=== PATIENT | male | born 2000 | race Caucasian/White ===

== ENCOUNTER 2023-12-05 17:06 | Emergency (ER) | payer MEDICAID, SELFPAY ==
[2023-12-05 17:24] VITALS: BP 132/76; PULSE 104; RESP 17; TEMP 36.7; O2SAT 100; BMI 18.0
--- NOTE | 2023-12-05 18:09 | W.ED.WOUNDLC ---
HPI - Wound/Laceration General: Chief Complaint: Wound/Laceration Stated Complaint: head wound, fall Time Seen by Provider: 12/05/23 18:09 History of Present Illness: Patient presents emerged part with complaint of a laceration on his right scalp. He states that he was running and fell into a chitina bed. He has multiple scrapes and abrasions. He has a small laceration on the top of the scalp as well as pain in his right ribs. States he otherwise feels fine. Denies any headache. Denies any neck or back pain. Denies any chest pain or abdominal pain. Review of Systems Musc: Reports: other (Right chest wall pain) Skin/Breast: Reports: other (Right scalp laceration) Physical Exam Const: COMMON NORMALS: no acute distress EXAM LIMITATIONS: no altered mental status GENERAL APPEARANCE: cooperative ORIENTATION/CONSCIOUSNESS: Yes awake, Yes oriented to person, Yes oriented to place and Yes oriented to time HENMT: COMMON NORMALS: head/scalp not atraumatic (1 cm laceration to the right parietal scalp) HEAD & SCALP: laceration; not atraumatic (1 cm laceration to the right parietal scalp) FACE & SINUS: normal facial exam Eye: COMMON NORMALS: Equal, round and reactive pupils present and EOMs intact bilaterally PUPIL: Yes Equal, round and reactive pupils present Neck/C-Spine: COMMON NORMALS: full ROM GENERAL: No tender Lymph: LYMPHATIC: no lymphadenopathy noted Chest: CHEST: Yes Symmetrical chest wall rise, Yes localized rib tenderness with anteroposterior compression and Yes wounds (Diffuse abrasions on right chest wall) Resp: COMMON NORMALS: normal respiratory effort and clear to auscultation bilaterally EFFORT & INSPECTION: Yes able to speak in complete sentences AUSCULTATION: clear to auscultation bilaterally Cardio: COMMON NORMALS: regular rate and regular rhythm RATE: regular rate RHYTHM: regular rhythm GI: COMMON NORMALS: Normal to inspection, nondistended, normoactive bowel sounds present and non-tender : COMMON NORMALS: Yes no CVA tenderness BLADDER/KIDNEY EXAM: Yes no CVA tenderness Back/Pelvis: COMMON NORMALS: no CVA tenderness Extremity: NARRATIVE EXTREMITY EXAM: Diffuse abrasions over all 4 extremities Neuro: SENSORIUM/ORIENTATION: Yes oriented to person, Yes oriented to place and Yes oriented to time Skin: NARRATIVE SKIN EXAM: Patient with diffuse abrasions over torso and extremities. Has 1 cm laceration over right parietal scalp Procedures Laceration Laceration 1: Site: scalp Size (cm): 1 Description: linear and clean Pre-repair: wound explored and irrigated extensively Skin layer closed with: other (2 seema) Course Vital Signs: Vital signs: Vital Signs Temperature 98.1 F 12/05/23 17:24 Pulse Rate 104 H 12/05/23 17:24 Respiratory Rate 17 12/05/23 17:24 Blood Pressure 132/76 12/05/23 17:24 Pulse Oximetry 100 12/05/23 17:24 Oxygen Delivery Me thod Room Air 12/05/23 17:24 MDM - Wound/Laceration Medical Decision Making Patient states that he fell into a chitina bed. He does have a laceration and multiple abrasions. There is only 1 laceration will require closing. He has a 1 cm laceration on his right parietal scalp. This was cleaned and closed in a normal sterile fashion with 2 seema. Tetanus was updated. He does have some right-sided rib pain so x-rays were performed. Per emergency physician interpretation there is no fracture or pneumothorax. Patient is wanting to go home and not wait for final read and I think this is reasonable. He has no respiratory distress. Will discharge patient home with Motrin. Patient has no indication for further imaging at this time. XR interpretation done by ED provider, pending radiology final review Discharge Plan Discharge Patient Disposition: Home Clinical Impression: Laceration Condition: Stable Prescriptions: New ibuprofen 800 mg tablet 800 mg PO Q8H Qty: 30 0RF Discharge Orders: Discharge ED (Routine); Ordered 12/05/23 Ordered By: aMtias Soliz Patient Instructions: Opioid Safety, Pain Management Activity Restrictions/Additional Instructions: He may take Motrin or Tylenol for pain. Keep wounds clean and avoid swimming until laceration and abrasions have healed. Follow-up in 8 to 10 days to have seema removed from your scalp. Washing daily with soap and water is good for your abrasions and laceration. Return if any evidence or signs or concerns of infection. Coding Level of Care Code ED Social Service Technician for Apol[facility] Cuellar
--- NOTE | 2023-12-05 19:35 | XRR_ITS ---
PROCEDURE INFORMATION: Exam: XR Right Ribs Exam date and time: 12/05/2023 7:44 PM Age: 23 years old Clinical indication: Injury or trauma; Fall; Rib area; Blunt trauma (contusions or hematomas); Patient HX: Patient fell onto ground [place] running [place]. C/O RT sided rib pain. TECHNIQUE: Imaging protocol: Radiologic exam of the right ribs. Views: 2 views. COMPARISON: No relevant prior studies available. FINDINGS: Bones/joints: Normal. Soft tissues: Normal. XR/XR ribs RT 2V* [id number] IMPRESSION: No acute findings.
[2023-12-05] MEDS: tetanus-dipt-pertussis 0.5 mL SDV IM (20:10)
[2023-12-05 20:24] VITALS: BP 132/76; PULSE 104; RESP 17; TEMP 36.7; O2SAT 100
== END 2023-12-05 20:31 | disposition home or self-care (01) ==
PROVIDERS: Emergency Provider Emergency Medicine
DX: S01.01XA Laceration without foreign body of scalp, initial encounter (principal); S40.812A Abrasion of left upper arm, initial encounter; S40.811A Abrasion of right upper arm, initial encounter; S80.812A Abrasion, left lower leg, initial encounter; S80.811A Abrasion, right lower leg, initial encounter; W17.81XA Fall down embankment (hill), initial encounter; Y92.828 Other wilderness area as the place of occurrence of the external cause; Z23 Encounter for immunization
CPT/HCPCS: 12001; 71100; 90471; 90715; 99283

== ENCOUNTER 2023-12-15 15:00 | Emergency (ER) | payer MEDICAID, SELFPAY ==
[2023-12-15 15:02] VITALS: BP 129/87; PULSE 80; RESP 16; TEMP 36.6; O2SAT 96; BMI 16.1
--- NOTE | 2023-12-15 15:12 | W.ED.RECABL ---
HPI - Recheck/Abnormal Lab/Rx General: Chief Complaint: Wound/Laceration Stated Complaint: staple removal Time Seen by Provider: 12/15/23 15:09 Source: patient Mode of arrival: ambulatory Limitations: no limitations History of Present Illness: Patient here for staple removal to scalp. Placed 10 days ago. No issues since placement. complaint: suture/staple removal Initial visit (ago): day(s) (10 days ago) Initial visit for: laceration Returns today for: staple/stitch removal Symptoms since prior visit: no new symptoms Associated symptoms: none Related Data Previous Rx's Medication Instructions Recorded ibuprofen 800 mg tablet 800 mg PO Q8H #30 tabs 12/05/23 Allergies Allergy/AdvReac Type Severity Reaction Status Date / Time atenolol Allergy Severe ALGY-Difficulty Verified 12/05/23 17:28 Breathing Sulfa (Sulfonamide Allergy Unknown Verified 12/05/23 17:29 Antibiotics) Review of Systems Neuro: Denies: headache(s) Physical Exam Const: COMMON NORMALS: no acute distress, no limitations and well nourished HENMT: HEAD & SCALP: other (two seema vertex of scalp-look clean; removed) Course Vital Signs: Vital signs: Vital Signs Temperature 97.9 F 12/15/23 15:14 Pulse Rate 99 12/15/23 15:14 Respiratory Rate 16 12/15/23 15:14 Blood Pressure 129/87 12/15/23 15:14 Pulse Oximetry 99 12/15/23 15:14 Oxygen Delivery Me thod Room Air 12/15/23 15:02 MDM - Recheck/Abnormal Lab/Rx Medical Decision Making Wound healing well. Two seema removed without difficulty. Medical Records I reviewed the patient's medical records. No radiology studies performed this visit Discharge Plan Discharge Patient Disposition: Home Clinical Impression: Encounter for removal of seema Condition: Stable Prescriptions: No Action ibuprofen 800 mg tablet 800 mg PO Q8H Qty: 30 0RF Discharge Orders: Discharge ED (Routine); Ordered 12/15/23 Ordered By: Nuvia Guadalupe Coding Level of Care Code ED Commercial Sales Manager for Apolonia Cuellar
[2023-12-15 15:14] VITALS: BP 129/87; PULSE 99; RESP 16; TEMP 36.6; O2SAT 99
== END 2023-12-15 15:16 | disposition home or self-care (01) ==
PROVIDERS: Emergency Provider Physician Assistant
DX: Z48.02 Encounter for removal of sutures (principal)
CPT/HCPCS: 99281